=== PATIENT | female | born 1935 | race Caucasian/White ===

== ENCOUNTER 2019-09-20 08:15 | Emergency (ER) | payer MEDICARE, OTHER ==
[~2019-09-20] VITALS: Ht 160 cm; Wt 52.2 kg
[~2019-09-20 08:15] MED LIST: ALBIPROI; ALBU90OI6 INH; ASCO500 PO; ATEN25 PO; CALCAVITDA; CONEST.625; DILT240 PO; FLEC50 PO; FLUSAL2505; FOLI400 PO; GLUC500; IRBE150 PO; METO25ER; METO50ER; PRED20 PO; ROSU10TA; THERA1 EACH PO; WARF3
[2019-09-20] MEDS ORDERED: PRAVASTATIN SOD10 MG PO (08:27)
[2019-09-20] MEDS ORDERED: LOSA50 PO (08:38)
[2019-09-20] MEDS ORDERED: METO25ER PO (08:39)
[2019-09-20] MEDS ORDERED: LEVSOD25 PO (08:39)
[2019-09-20 09:01] LABS: BASOPHILS ABSOLUTE AUTO 0.03 K/mm3 (0.00-0.23); BASOPHILS PERCENT AUTO 0 % (0-2); EOSINOPHILS ABSOLUTE AUTO 0.08 K/mm3 (0.00-0.68); EOSINOPHILS PERCENT AUTO 1 % (0-6); Hematocrit 45.9 % (33.0-51.0); Hemoglobin 14.5 g/dL (11.5-16.0); IMMATURE GRAN ABSOLUTE AUTO 0.02 K/mm3 (0.00-0.10); IMMATURE GRAN PERCENT AUTO 0 % (0-1); LYMPHOCYTES ABSOLUTE AUTO 1.61 K/mm3 (0.84-5.20); LYMPHOCYTES PERCENT AUTO 16 % (21-46); MONOCYTES ABSOLUTE AUTO 0.88 K/mm3 (0.16-1.47); MONOCYTES PERCENT AUTO 9 % (4-13); Mean Corpuscular HGB Conc 31.6 g/dL (31.5-36.5); Mean Corpuscular Volume 98 fL (80-100); Mean Platelet Volume 9.9 fL (9.1-12.4); NEUTROPHILS ABSOLUTE AUTO 7.33 K/mm3 (1.96-9.15); NEUTROPHILS PERCENT AUTO 74 % (41-73); Platelet Count 190 K/mm3 (150-400); RDW Coefficient Variation 12.8 % (11.7-14.2); RDW Standard Deviation 45.7 fL (35.1-46.3); Red Blood Cell Count 4.68 M/mm3 (3.80-5.20); White Blood Cell Count 9.95 K/mm3 (4.00-11.30)
[2019-09-20 09:23] LABS: Alanine Aminotransfer (ALT/SGP 38 U/L (12-78); Albumin, Blood 3.6 g/dL (3.4-5.0); Albumin/Globulin Ratio 0.9 (0.8-1.8); Alk Phos 108 U/L (50-136); Anion Gap 5 mmol/L (6-16); Aspartate Aminotrans (AST/SGOT 35 U/L (12-37); Bilirubin, Total 0.8 mg/dL (0.1-1.0); Blood Urea Nitrogen 18 mg/dL (8-24); Bun/Creatinine Ratio 18.1 (12.0-20.0); CO2, Blood 29 mmol/L (21-32); Calcium, Blood 9.2 mg/dL (8.5-10.1); Chloride, Blood 101 mmol/L (98-108); Creatinine, Blood 0.99 mg/dL (0.40-1.00); Globulin, Blood 3.9 g/dL (2.2-4.0); Glomerular Filtration Rate 56 (60-); Glucose, Blood 116 mg/dL (70-99); Potassium, Blood 4.2 mmol/L (3.5-5.5); Sodium, Blood 135 mmol/L (136-145); Total Protein, Blood 7.5 g/dL (6.4-8.2); Troponin I <0.015 ng/mL (0.000-0.040)
[2019-09-20] MEDS ORDERED: Prednisone20 MG PO (11:33)
[2019-09-21] MEDS ORDERED: FLECAINIDE ACE150 M1 PO (13:13)
[2019-09-21] MEDS ORDERED: WARF4 PO ×2 (13:13→13:21)
[2019-09-21] MEDS ORDERED: ANORO ELLIPTA1 EACH INH (13:13)
== END 2019-09-20 15:08 | disposition home or self-care (01) ==
LOC: ER 08:15
PROVIDERS: Emergency Medicine
DX: J44.9 Chronic obstructive pulmonary disease, unspecified (principal); I48.91 Unspecified atrial fibrillation; I10 Essential (primary) hypertension; Z88.8 Allergy status to other drugs, medicaments and biological substances; Z79.899 Other long term (current) drug therapy; Z79.52 Long term (current) use of systemic steroids; Z79.01 Long term (current) use of anticoagulants
CPT/HCPCS: 36415; 71045; 80053; 83880; 84484; 85025; 93005; 93010; 94644; 96374; 99285-25; J2930

== ENCOUNTER 2019-09-21 10:17 | Inpatient (IN) | payer MEDICARE, OTHER ==
[~2019-09-21] VITALS: Ht 167.6 cm; Wt 67.0 kg
[~2019-09-21 10:17] MED LIST changes: +LEVSOD25 PO; +LOSA50 PO; +METO25ER PO; +PRAVASTATIN SOD10 MG PO; +Prednisone20 MG PO
[2019-09-21 10:49] LABS: PO2 Arterial 79.3 mmHg (80-100); pH Blood Arterial 7.21 (7.35-7.45)
[2019-09-21 10:50] LABS: PCO2 Arterial 71.5 mmHg (35-45)
[2019-09-21 11:09] LABS: BASOPHILS ABSOLUTE AUTO 0.04 K/mm3 (0.00-0.23); BASOPHILS PERCENT AUTO 0 % (0-2); EOSINOPHILS PERCENT AUTO 0 % (0-6); Hematocrit 46.5 % (33.0-51.0); Hemoglobin 14.8 g/dL (11.5-16.0); IMMATURE GRAN ABSOLUTE AUTO 0.11 K/mm3 (0.00-0.10); IMMATURE GRAN PERCENT AUTO 1 % (0-1); LYMPHOCYTES ABSOLUTE AUTO 1.28 K/mm3 (0.84-5.20); LYMPHOCYTES PERCENT AUTO 6 % (21-46); MONOCYTES ABSOLUTE AUTO 1.03 K/mm3 (0.16-1.47); MONOCYTES PERCENT AUTO 4 % (4-13); Mean Corpuscular HGB 31.1 pg (26.0-34.0); Mean Corpuscular HGB Conc 31.8 g/dL (31.5-36.5); Mean Corpuscular Volume 98 fL (80-100); Mean Platelet Volume 9.8 fL (9.1-12.4); NEUTROPHILS ABSOLUTE AUTO 20.88 K/mm3 (1.96-9.15); NEUTROPHILS PERCENT AUTO 89 % (41-73); Platelet Count 250 K/mm3 (150-400); RDW Coefficient Variation 12.5 % (11.7-14.2); RDW Standard Deviation 45.3 fL (35.1-46.3); Red Blood Cell Count 4.76 M/mm3 (3.80-5.20); White Blood Cell Count 23.34 K/mm3 (4.00-11.30)
[2019-09-21 11:29] LABS: Alanine Aminotransfer (ALT/SGP 37 U/L (12-78); Albumin, Blood 3.8 g/dL (3.4-5.0); Albumin/Globulin Ratio 0.9 (0.8-1.8); Alk Phos 103 U/L (50-136); Anion Gap 8 mmol/L (6-16); Aspartate Aminotrans (AST/SGOT 28 U/L (12-37); Bilirubin, Total 0.5 mg/dL (0.1-1.0); Blood Urea Nitrogen 28 mg/dL (8-24); Bun/Creatinine Ratio 25.9 (12.0-20.0); CO2, Blood 28 mmol/L (21-32); Calcium, Blood 9.2 mg/dL (8.5-10.1); Chloride, Blood 97 mmol/L (98-108); Creatinine, Blood 1.08 mg/dL (0.40-1.00); Globulin, Blood 4.2 g/dL (2.2-4.0); Glomerular Filtration Rate 51 (60-); Glucose, Blood 178 mg/dL (70-99); Potassium, Blood 4.6 mmol/L (3.5-5.5); Sodium, Blood 133 mmol/L (136-145); Troponin I <0.015 ng/mL (0.000-0.040)
[2019-09-21 11:31] LABS: Prothrombin Time Results 52.3 Sec (9.7-11.5)
[2019-09-21 11:35] LABS: International Normalized Ratio 5.38
[2019-09-21] MEDS ORDERED: ANORO ELLIPTA1 EACH INH (13:13)
[2019-09-21] MEDS ORDERED: FLECAINIDE ACE150 M1 PO (13:13)
[2019-09-21] MEDS ORDERED: WARF4 PO ×2 (13:13→13:21)
[2019-09-21 13:22] LABS: Adenovirus Not Detected (NOT DETECT); Bordetella pertussis Not Detected (NOT DETECT); Chlamydophila pneumoniae Not Detected (NOT DETECT); Coronavirus 229E Not Detected (NOT DETECT); Coronavirus HKU1 Not Detected (NOT DETECT); Coronavirus NL63 Not Detected (NOT DETECT); Coronavirus OC43 Not Detected (NOT DETECT); Human Metapneumovirus Detected (NOT DETECT); Human Rhinovirus/Enterovirus Not Detected (NOT DETECT); Influenza A/2009-H1 Not Detected (NOT DETECT); Influenza A/H1 Not Detected (NOT DETECT); Influenza A/H3 Not Detected (NOT DETECT); Influenza B Not Detected (NOT DETECT); Mycoplasma pneumoniae Not Detected (NOT DETECT); Parainfluenza Virus 1 Not Detected (NOT DETECT); Parainfluenza Virus 2 Not Detected (NOT DETECT); Parainfluenza Virus 3 Not Detected (NOT DETECT); Parainfluenza Virus 4 Not Detected (NOT DETECT); Respiratory Syncytial Virus Not Detected (NOT DETECT)
[2019-09-21 16:16] LABS: Source, Urine Clean Catch
[2019-09-21 16:28] LABS: Bilirubin, Urine Neg (Neg); Blood, Urine 2+ (Neg); Glucose Qualitative, Urine Neg (Neg); Ketones, Urine Neg (Neg); Leukocyte Esterase, Urine Neg (Neg); Nitrite, Urine Neg (Neg); Protein, Urine 2+ (Neg); Urobilinogen, Urine 1+ (Normal)
[2019-09-21 16:46] LABS: Appearance, Urine Cloudy (Clear); Color, Urine Yellow (P-Yellow)
[2019-09-21 16:47] LABS: Granular Casts 0-2 /lpf (0)
[2019-09-21 16:48] LABS: Bacteria Many /hpf; Squamous Epithelial Cells Few /hpf (Few); White Blood Cells, Urine 0-2 /hpf (0-5)
--- NOTE | 2019-09-21 18:47 | NUR ---
ADMIT NOTE RECEIVED REPORT FROM STEVE GONZALEZ RN IN ED. PT TO ROOM AT 1615; TRANSFERED WT[facility] 3 PERSON ASSIST AND SLIDER SHEET. PT ORIENTED TO ROOM AND CALL LIGHT. EDUCATED ON FALL RISK AND BED ALARM. PT TO ROOM ON 6L O2 VIA NC; TITRATED TO 5L O2 VIA NC, NOTIFIED RT PT AT IN ROOM; BIPAP PLACED AT APPROX 1630; 12/6 AT 40% FIO2. PT A&Ox3; ANXIOUS BUT COOPERATIVE WITH CARE. PT REPORTS FEELING ANXIOUS REGARDING BIPAP, EDUCATED PT ON USE OF BIPAP AND PT AGREEABLE TO WEARING. PT SOB AT REST, LABORED BREATHING ON 5L O2 VIA NC PRIOR TO BIPAP. PT DENIES NAUSEA, PAIN, CHEST PAIN/PRESSURE AND DIZZINESS. PT COLD TO TOUCH AND PALE; APPLIED WARM BLANKET. PER TELE PT AFIB 90-100'S, AMIODARONE DRIP INFUSING. OTHER VSS. NO OTHER ACUTE CHANGS NOTED DURING SHIFT. WILL CONTINUE TO MONITOR UNITL REPORT GIVEN TO ONCOMING RN.
[2019-09-21 18:58] LABS: PO2 Arterial 88.4 mmHg (80-100); pH Blood Arterial 7.21 (7.35-7.45)
[2019-09-22 04:15] LABS: BASOPHILS ABSOLUTE AUTO 0.07 K/mm3 (0.00-0.23); BASOPHILS PERCENT AUTO 0 % (0-2); EOSINOPHILS PERCENT AUTO 0 % (0-6); Hematocrit 46.4 % (33.0-51.0); Hemoglobin 14.3 g/dL (11.5-16.0); IMMATURE GRAN ABSOLUTE AUTO 0.69 K/mm3 (0.00-0.10); IMMATURE GRAN PERCENT AUTO 2 % (0-1); LYMPHOCYTES ABSOLUTE AUTO 2.17 K/mm3 (0.84-5.20); LYMPHOCYTES PERCENT AUTO 7 % (21-46); MONOCYTES ABSOLUTE AUTO 2.05 K/mm3 (0.16-1.47); MONOCYTES PERCENT AUTO 7 % (4-13); Mean Corpuscular HGB 31.2 pg (26.0-34.0); Mean Corpuscular HGB Conc 30.8 g/dL (31.5-36.5); NEUTROPHILS PERCENT AUTO 84 % (41-73); Platelet Count 289 K/mm3 (150-400); RDW Coefficient Variation 12.9 % (11.7-14.2); RDW Standard Deviation 48.7 fL (35.1-46.3); Red Blood Cell Count 4.58 M/mm3 (3.80-5.20); White Blood Cell Count 30.28 K/mm3 (4.00-11.30)
[2019-09-22 04:16] LABS: Mean Corpuscular Volume 101 fL (80-100)
[2019-09-22 04:37] LABS: Albumin, Blood 3.7 g/dL (3.4-5.0); Bilirubin, Total 0.4 mg/dL (0.1-1.0); Bun/Creatinine Ratio 30.6 (12.0-20.0); Calcium, Blood 9.2 mg/dL (8.5-10.1); Creatinine, Blood 1.11 mg/dL (0.40-1.00); Globulin, Blood 3.8 g/dL (2.2-4.0); International Normalized Ratio 8.66; Potassium, Blood 5.1 mmol/L (3.5-5.5); Total Protein, Blood 7.5 g/dL (6.4-8.2)
--- NOTE | 2019-09-22 07:25 | NUR ---
ASSUMED PATIENT CARE. PATIENT RESTING COMFORTABLY IN BED, NO SIGNS OF ACUTE RESPIRATORY DISTRESS. BIPAP ON. WCTM.
--- NOTE | 2019-09-22 07:32 | NUR ---
SHIFT SUMMARY PT ALERT & ORIENTED TO SELF; FORGETFUL AT TIMES; PT BECAME LETHARGIC IN NIGHT; RT TITRATED BIPAP SETTINGS; CURRENTLY 14/8 50% FIO2; O2 SATS >91; LUNG SOUNDS EXP WHEEZES; PT RESPONDS BUT WILL NOT HELP HOLD MASK FOR ADJUSTMENTS; AMIO GTT INFUSING; AFIB NOTED ON TELE; HR 110-120; PT DENIES CHEST PAIN; ATTENDS IN PLACE; AM LAB DRAWS INR 8.66; WBC 30.28; FFP ORDERED DUE TO CH INR; 2 UNIT INFUSING; CALL LIGHT IN REACH; BED IN LOWEST POSITION; REPORT GIVEN TO DAY GERMAN RN.
--- NOTE | 2019-09-22 11:45 | NUR ---
Case Conference with Bedside RN Uriel. Discussed case and plan of care. Uriel reports speaking with family this AM and is updated on plan of care. Palliative Care will remain available.
[2019-09-22 13:41] LABS: PCO2 Arterial 74 mmHg (35-45); PO2 Arterial 69 mmHg (80-100); pH Blood Arterial 7.19 (7.35-7.45)
--- NOTE | 2019-09-22 17:03 | NUR ---
PATIENT ON BIPAP ALL THIS SHIFT, ONLY 2 SHORT >5 MIN. BREAKS FOR PO INTAKE. PATIENT'S WORK OF BREATHING HAS REMAINED ELEVATED THROUGH THIS SHIFT. PATIENT IS LETHARGIC BUT ORIENTED. BREATH SOUNDS DIMINISHED, COARSE IN LLL. AMIODORONE DRIP STOPPED AT 1340, STARTED ON PO AMIODORONE. PATIENT'S ABDOMEN DISTENDED, BLADDER SCAN SHOWED 504 MLS URINE, CANALES CATHETER PLACED AND 500 MLS OUTPUT NOTED. REPEAT ABG WAS ORDERED DUE TO LETHARGY AND WORK OF BREATHING, pH WENT FROM 7.21 TO 7.19 AND pCO2 WENT FROM 65.[address] WALKER NOTIFIED, LASIX ORDERED, DR. WALKER CONSULTED DR. THOMSON WHO WILL COME AND ASSESS PATIENT.
--- NOTE | 2019-09-22 19:10 | NUR ---
RELINQUISHED PATIENT CARE.
[2019-09-22 19:38] LABS: Source, Urine Catheter
--- NOTE | 2019-09-22 19:43 | NUR ---
ASSUMED CARE OF PATIENT AT APPROIMATELY 190 FROM SHALOM Alejandro RN. PATIENT CONFUSED; CALLING ABOUT 4 TIMES PLAYBACK OPERATOR LIGHT WITHIN 5 MINUTES AND REPORTING HALLUCINATIONS. PATIENT STATES DATE OF ; ABLE TO STATE NAME AND BIRTHDAY. PATIENT LAYING IN BED WITH EYES CLOSING AT TIMES. PATIENT REPORTS HER SON ULISES IS HER HEALTHCARE PROXY. PATIENT DENIES PAIN, NUMBNESS, TINGLING, DIZZIESS OR NAUSEA 2X PIV S/L. AFIB ON TELE WITH AVERAGE OF 80-100; OXYGEN SATURATION ABOVE 90% ON BIPAP 05/02; 40% FIO2 OR 5LPM VIA NC FOR BREAKS; BASELINE IS NO OXYGEN. URINARY CATH DRAINING JOE COLORED URINE. DR. THOMSON BEDSIDE 1944; RT TO DRAW NEW ABG; KEEP PATIENT IN PCU FOR NOW; DR. THOMSON TO CALL SON ULISES. PATINENT CURRENTLY RESTING IN BED; CALL LIGHT IN REACH; BED IN LOWEST POSISTION; BED ALARM ON; WILL CONTINUE TO MONITOR AND ASSESS UNTIL END OF SHIFT.
[2019-09-22 19:51] LABS: Bilirubin, Urine Neg (Neg); Blood, Urine 5+ (Neg); Glucose Qualitative, Urine Neg (Neg); Ketones, Urine Neg (Neg); Leukocyte Esterase, Urine Neg (Neg); Nitrite, Urine Neg (Neg); Protein, Urine 2+ (Neg); Urobilinogen, Urine NORM (Normal)
[2019-09-22 19:55] LABS: Appearance, Urine Clear (Clear); Color, Urine Yellow (P-Yellow)
[2019-09-22 19:58] LABS: Red Blood Cells, Urine 25-50 /hpf (0-2)
[2019-09-22 19:59] LABS: Bacteria Many /hpf; Squamous Epithelial Cells Few /hpf (Few)
[2019-09-22 19:59] LABS: PO2 Arterial 73.9 mmHg (80-100)
[2019-09-22 20:00] LABS: PCO2 Arterial 76.9 mmHg (35-45); pH Blood Arterial 7.21 (7.35-7.45)
[2019-09-23 03:53] LABS: Hematocrit 44.2 % (33.0-51.0); Hemoglobin 13.8 g/dL (11.5-16.0); Mean Corpuscular HGB Conc 31.2 g/dL (31.5-36.5); Mean Corpuscular Volume 99 fL (80-100); Mean Platelet Volume 9.8 fL (9.1-12.4); Platelet Count 222 K/mm3 (150-400); RDW Coefficient Variation 12.9 % (11.7-14.2); RDW Standard Deviation 47.8 fL (35.1-46.3); Red Blood Cell Count 4.45 M/mm3 (3.80-5.20); White Blood Cell Count 23.27 K/mm3 (4.00-11.30)
[2019-09-23 04:14] LABS: Prothrombin Time Results 46.3 Sec (9.7-11.5)
[2019-09-23 04:17] LABS: International Normalized Ratio 4.72
[2019-09-23 04:23] LABS: Calcium, Blood 9.3 mg/dL (8.5-10.1); Creatinine, Blood 1.25 mg/dL (0.40-1.00); Potassium, Blood 5.5 mmol/L (3.5-5.5)
--- NOTE | 2019-09-23 05:03 | NUR ---
GIANNI Oliva FROM LAB CALLED TO REPORT PATIENTS COVID RESULTS WERE BACK; NEGATIVE.
--- NOTE | 2019-09-23 08:17 | NUR ---
ECHOCARDIOGRAM COMPLETED
--- NOTE | 2019-09-23 13:22 | NUR ---
REPORT TO SB CRISTINA
--- NOTE | 2019-09-23 13:51 | NUR ---
ASSUMED CARE AT THIS TIME, REPORT FROM JONNIE HOLLOWAY. AWAKE RESTING IN BED IN HIGH SUPINE POSITION. BIPAP IN PLACE, SETTINGS REVIEWED WITH JEWEL. 02 34%, 16/, RATE OF 12. NODS HEAD WHEN ASKED QUESTIONS. AWAKE BUT APPREARS SLEEPY.
--- NOTE | 2019-09-23 15:33 | NUR ---
The pt was pulling her bipap mask off. I asked if she wanted a break from the mask, and attempted to put her oxygen nasal cannula on, which she resisted at first, until she realized that it wasn't the bipap mask. Spo2 dipped to 87% and improved to 88-89%, 5 minutes later 95% on the 5 l/min flow. O2 flow decreased to 4 l/min n.c. at this time. the pt appears exhausted, eyes are closing, and she appears to be nodding off to sleep. She answered questions.
--- NOTE | 2019-09-23 17:48 | NUR ---
PALLATIVE RN SPOKE WITH FAMILY. STATES CHANGED TO COMFORT CARE. PALLATIVE CARE RN SPEAKING WITH DR. PEDROZA.
--- NOTE | 2019-09-23 18:40 | NUR ---
SHIFT SUMMARY; REMAINED ON BIPAP UNTIL LATE AFTERNOON. PULLS BIPAP MASK OF AND REFUSES TO PUT BACK ON. PLACED ON 5L NC TO MAINTAIN SATS OF 92-95%. RR 30 PER MINUTE. APPEARS TO HAVE INCREASED WORK OF BREATHING. NODS HEAD TO ANSWER QUESTIONS BUT DOES NOT SPEAK. PALLATIVE CARE TO ROOM TO EVAL PT AND PHONE FAMILY TO DISCUSS PTS WISHES TO DISCONTINUE BIPAP. CHANGED TO COMFORT CARE ORDERS PLACED BY DR. PEDROZA. FAMILY AT BEDSIDE AT CHANGE OF SHIFT. FAMILY EDUCATED BY PALLATIVE CARE VIA PHONE OF PTS WISHES. PT FREQUENTLY CLOSING EYES AND NODING HEAD. AWAKES TO VERBAL STIMULI.
--- NOTE | 2019-09-23 18:47 | NUR ---
Initial spiritual care note: Pt is now comfort measures only. Dtr and son at bedside. Lizzette is non-responsive, breaths shallow, skin mottled. She appears very near end-of-life. Son and dtr tearful but appropriate. I provided nearing education, gentle bereavment professor of counseling, and prayer for peaceful transition. Facilitated life review with Lizzette's kids to good effect. They expressed deep sadness that due to Covid-19 restrictions, they have been unable to be at bedside until now. Advised I would remain available.
--- NOTE | 2019-09-23 19:25 | NUR ---
Comfort Care Decision: Called earlier today to visit with pt. Nurse reports that pt is declining bipap treatments. Pt is able to communicate with nodding and shaking her head. Pt's condition is deteriorating this shift. Reviewed with RT [place]. He states that he would not be surprised if she within 24 hours if she continues to refuse bipap. Conversed with nurseYesika and with PCU charge nurse, Nadine. Spoke to Lainey, pt's daughter. Explained situation. She and her brothers are all together and ready to make decisions if needed. They are anxious to see her. Pt is alert, oriented. She answers questions appropriately. Instructed on her deteriorating health. She is nodding her head that she understands. Explored her understanding futher by instructing that she may if she continues to refuse the bipap. She is nodding again and mouths the words, "I know." She agrees that she does not want to wear the bipap and would like to change her care plan to a comfort plan instead of a curative treatment plan. She agrees that she would like all treatments that do not contribute to her comfort discontinued and only wants treatments that will keep her comfortable during her dying process. She is at this time, not wanting to see her children. Call placed to Dr. Manuel and comfort measures placed. Call to daughter, Lainey. Reviewed change of care plan and desired outcomes. She is agreeable with her mother's decision and would like to come see her with her brothers. Reviewed visitation with comfort measures. Lainey states that she doesn't understand why her mother would ask not to see her and states that it "just doesn't sound like her." Call to charge nurse, Nadine. She asked the pt if it is okay if Lainey came to see her and she states that this is okay with her. Called and spoke to Kristine Carmona, nursing supervisor border department. She will call and allow the family to visit in compliance with COVID19 precautions. Return call to Lainey with instruction for visiting. Lainey and her brothers are agreeable and will comply with precautions. No other concerns at this time. Will remain available.
--- NOTE | 2019-09-23 19:47 | NUR ---
Comfort Care: Pt appears to be comfortable. Her shortness of breath is reduced and she appears calm. No s/s of distress. Lainey, pt's daughter, is bedside. She reports that she was here when her mother was still interactive. She states that she is not talking now, but was attempting to when she arrived. She expresses gratitude for nursing to coordinate visitation for her dying mother. No other questions. She feels comfortable to report changes to nursing staff. Palliative care to remain available.
[2019-09-23] MEDS ORDERED: ATROPINE SULFATE2 ML BOTHEYES (22:46)
[2019-09-23] MEDS ORDERED: MORP20L SL (22:56)
[2019-09-23] MEDS ORDERED: LORAZEPAM2 MG/1 ML SL (22:58)
--- NOTE | 2019-09-23 23:02 | NUR ---
CARE ASSUMPTION / DISCHARGE HOME PT COMFORT CARE STATUS, NONRESPONSIVE W/ FAMILY AT BEDSIDE. FAMILY REQUESTING PT DISCHARGE HOME TO BE W/ FAMILY. MD HECK AT PT BEDSIDE W/ ORDERS FOR PT TO DISCHARGE HOME TONIGHT PER FAMILY REQUEST & HOSPICE BE INITIATED WHEN AVAILABLE IN AM. PT PIV's X2 REMOVED. CANALES CATH LEFT IN PLACE PER PT FAMILY REQUEST, PATENT AND DRAINING DARK YELLOW URINE. PT WEARING 2-5L NC FOR SPO2 > 92%. PT TAKEN BY EMS STAFF X2 VIA JULIA W/ FAMILY ACCOMPANYING. DISCHARGE HOME @ 3745.
== END 2019-09-23 22:30 | disposition home health service (06) | DRG 189 ==
LOC: ER 10:17 → EDBEDREQ 14:47 → PCU 14:48
PROVIDERS: Emergency Medicine; Internal Medicine Critical Care Medicine; Nurse Practitioner Acute Care; ADMIT Internal Medicine
DX: J96.21 Acute and chronic respiratory failure with hypoxia (principal); J44.1 Chronic obstructive pulmonary disease with (acute) exacerbation; J96.22 Acute and chronic respiratory failure with hypercapnia; Z51.5 Encounter for palliative care; B97.81 Human metapneumovirus as the cause of diseases classified elsewhere; I48.91 Unspecified atrial fibrillation; I10 Essential (primary) hypertension
CPT/HCPCS: 0099U; 36415; 36430; 36600; 71045; 80048; 80053; 81001; 82803; 83605; 83735; 83880; 84145; 84484; 85025; 85027; 85610; 86140; 86900; 86901; 87040; 87077; 87086; 87186; 93005; 93010; 93306; 94640; 94644; 94660; 94762; 96361; 96365; 96366; 96375; 99285-25; A9270-GY; J0282; J0456; J0696; J1940; J2920; J7030; J7050; J7060; J7120; P9059; P9612; U0002